=== PATIENT | male | born 1960 | race Caucasian/White ===

== ENCOUNTER → 2023-12-06 11:01 | Outpatient (REF) | payer OTHER, SELFPAY | LOC: HWRAD 11:01 | PROVIDERS: ATTENDING PHYSICIAN Nurse Practitioner Adult Health | DX: R06.09 Other forms of dyspnea (principal); R09.1 Pleurisy | CPT/HCPCS: 71046 ==

== ENCOUNTER 2024-10-08 15:55 | Inpatient (IN) | payer OTHER, SELFPAY ==
[2024-10-08 11:37] VITALS: BP 169/81
[2024-10-08 11:54] VITALS: BP 142/84
[2024-10-08 11:57] VITALS: BMI 35.4
--- NOTE | 2024-10-08 12:25 | ED.GENMED ---
History of Present Illness
General
Chief Complaint: Rectal Bleeding
Time Seen by Provider: 10/08/24 11:46
History of Present Illness
History of Present Illness:
63-year-old male presents the emergency department for evaluation of intractable rectal bleeding and loose stools for the past 2 to 3 months. He has a history of ulcerative colitis, currently managed on Humira which she feels is ineffective.
States he had previously been on Remicade with good results for 10+ years. Has followed up with his GI doctor in [place] and was started on a course of steroids, took 20 mg for 1 month and then increase to 40 mg, taper down over a month. Not
currently on any steroids. Reports minimal to no improvement on that therapy. Denies any significant abdominal pain at this point. No fevers or night sweats. Not on any anticoagulants, was on baby aspirin but discontinued this recently
Review of Systems
Review of Systems
Allergies reviewed?: Yes
All Other Systems: ROS reviewed and negative except as documented in HPI and ROS
Phy Exam
Physical Exam
Physical Exam:
GEN: Well appearing, NAD, WDWN
HEENT: Oral mucosa moist, no scleral icterus
Cardiac: Regular rate
Lung: No respiratory distress, no tachypnea
Abdomen: Soft, nontender
MSK: No gross deformity or injuries
Skin: Good color, no pallor or jaundice, no rashes
Neuro: AO x3, moves all extremities freely
Psych: Calm, cooperative
Course
Orders/Labs/Results
Orders:
Orders
10/08/24 11:39
EKG [Electrocardiogram (*1)] Urgent
Reason for Study: Fatigue / Weakness
EKG- Treatment ONCE
10/08/24 12:23
CT Abd/Pel (IV only)-[facility] only Urgent
Comment:
Reason For Exam: rectal bleeding, diarrhea
10/08/24 12:31
Type+Screen Urgent
CRP [C-Reactive Protein] Urgent
Complete Blood Count/With Diff Urgent
Comprehensive Metabolic Panel Urgent
Ferritin Urgent
Comment: ADD ON
Iron Urgent
Comment: ADD ON
Total Iron Binding Urgent
Comment: ADD ON
10/08/24 12:59
ABO2 Routine
BBK Wristband Number:
Associate notified that ABO2 has been ordered: [id number]
Date: 10/08/24
Time: 13:00
Whiteprinting Machine Operator ID: [id number]
10/08/24 15:08
MethylPREDNISolone PF [Solu-Medrol Pf] 60 mg IV NOW STA
10/08/24 15:32
C DIFF [C difficile Antigen & Toxins] Urgent
OSEI Source: Feces/Stool
Specimen Description:
Norovirus by PCR Routine
OSEI Source: Feces/Stool
Specimen Description:
Ova & Parasites Giardia/Crypto AG [Giardia/Cryptosporidium Ag] Routine
OSEI Source: Feces/Stool
Specimen Description:
Stool Culture Routine
OSEI Source: Feces/Stool
Specimen Description:
10/08/24 15:36
Admit/Transfer Patient As Directed
Co-Sign Provider:
Level of Care: Inpatient admission
Assign to:: Medical/Surgical
Physician / Group: boris
Diagnosis: ulcerative colitis
Reason for Hospitalization: ulcerative colitis
Expected length of stay greater than two midnights?: Yes
ELOS- Estimated Length of Stay in days: 3
I certify the patient meets the requirements for IP care: Yes
PRN Pain Medication Management As Directed
May give lesser potent ordered pain med per pt: Yes
preference::
Protocol:: Medication orders for pain may be administered in a
manner that supports deferring to patient preference
when the pt is:
- Requesting an ordered lesser potent pain medication.
Least to most potent pain medications are defined
as: acetaminophen < NSAID < tramadol < opioids
(morphine, oxycodone, hydromorphone).
- Requesting a lesser dose of the same medication IF
ORDERED.
- Requesting a less intrusive route of administration
if both routes are prescribed by the provider (PO <
IV).
10/08/24 15:37
Code Status As Directed
Resuscitation Status: Full Code
10/08/24 15:59
Acetaminophen [Tylenol] 650 mg PO Q4HPRN PRN
10/08/24 15:59
GASTROINTESTINAL CONSULT Routine
Consulting Provider: Ashley Gambino
Was physician already notified: Yes
Activity As Directed
Activity Level: As Tolerated
Pneumatic Compression Sleeves As Directed
Type: Knee high
Vital Signs As Directed
Frequency: Per unit guidelines
DX Deep Vein Thrombosis Video Routine
DX Deep Vein Thrombosis Video Routine
10/08/24 16:00
Dextrose 5%/0.45%Sodchl 1000ML [D5/0.45%NaCl] 1,000 ml IV 80 mls/hr
10/08/24 18:00
Enoxaparin Sodium [Lovenox] 40 mg SC QPM
10/08/24 22:00
Lisinopril [Zestril] 20 mg PO HS
Rosuvastatin Calcium [Crestor] 10 mg PO HS
10/09/24 Breakfast
NPO
Allow oral meds: Yes
Allow clear liquids: No
Complete Blood Count/No Diff IN AM
10/09/24 08:00
mesalamine See Dose Instructions PO DAILY
10/10/24 06:00
Complete Blood Count/No Diff IN AM
10/11/24 06:00
Complete Blood Count/No Diff IN AM
Abnormal Lab Results
10/08/24
12:31
Hgb 12.1 L g/dL
(13.0-18.0)
Hct 38.3 L %
(39.0-52.0)
MCV 64.4 L fL
(80.0-94.0)
MCH 20.3 L pg
(27.0-31.0)
MCHC 31.6 L g/dL
(33.0-37.0)
RDW 19.4 H %
(11.5-14.5)
Lymphocytes % 17.4 L %
(20.5-51.1)
Iron 46 L ug/dl
(49-181)
% Saturation 15 L %
(20-50)
C-Reactive Protein 38.60 H mg/L
(0.0-10.00)
10/08/24 12:31
10/08/24 12:31
Vital Signs
Initial and Last Documented VS:
Initial Vital Signs
Temp Pulse Resp BP Pulse Ox
98.6 F 53 16 169/81 96
10/08/24 11:37 10/08/24 11:37 10/08/24 11:37 10/08/24 11:37 10/08/24 11:37
Last Documented Vital Signs
Temp Pulse Resp BP Pulse Ox
98.4 F 61 17 155/65 95
10/08/24 16:56 10/08/24 16:56 10/08/24 16:56 10/08/24 16:56 10/08/24 16:56
MDM/Problems Addressed
MDM/Problems Addressed:
Imaging reveals proctocolitis, this is suspicious for persistent ulcerative colitis flare despite steroid treatments at home and continuation of his Humira. Will admit for failure of outpatient management for GI consultation, empiric steroids
started
*Pulse Oximetry
SaO2: 96
Oxygen Mode of Delivery: Room air
Patient hypoxic: no
*Critical Care Note
Total Time (30-74mins, 75-104mins- exclusive of procedures): Not Applicable
ED Attending Note
-
Portions of this chart may have been created with voice recognition software.� Occasional wrong word or��sound alike� substitutions may have occurred due to the inherent limitations of voice recognition software.
Discharge Plan
Departure
Patient Disposition: Admit
Date of Disposition: 10/08/24
Time of Disposition: 15:16
Admit to: Med/Surg
Presentation/result/management discussed w/ accepting MD/DO: Hospitalist
Discharge Problem:
Proctocolitis
Interventions
Interventions:
*Risk Screen - Suicide Last Done: 10/08/24 12:01
*General Assessment Last Done: 10/08/24 11:59
*Neglect/Abuse Screening Last Done: 10/08/24 12:00
*ED- Fall Risk Assessment Last Done: 10/08/24 11:58
*ED COVID-19 Vaccine History Last Done: 10/08/24 11:58
JX-Fdkbjv-Szdkslcfza Assessment Last Done: 10/08/24 12:04
ED- Cardiac Assessment Last Done: 10/08/24 12:01
ED- Pulmonary Assessment Last Done: 10/08/24 12:04
[2024-10-08 12:52] LABS: Hematocrit 38.3 % (39.0-52.0); Hemoglobin 12.1 g/dL (13.0-18.0); Mean Corp Hgb Conc. 31.6 g/dL (33.0-37.0); Mean Corpuscular Volume 64.4 fL (80.0-94.0); Nucleated Red Blood Cells % 0 % (-); Platelet Count 359 10^3/uL (130-400); Red Cell Dist. Width 19.4 % (11.5-14.5)
[2024-10-08 12:57] LABS: ALT (SGPT) 23 U/L (0-50); AST (SGOT) 20 U/L (17-59); Albumin 4.0 g/dl (3.5-5.0); Alkaline Phosphatase 60 U/L (38-126); Blood Urea Nitrogen 11 mg/dl (9-20); Calcium 9.4 mg/dl (8.4-10.2); Carbon Dioxide 24 mmol/L (22-30); Chloride 106 mmol/L (98-107); Estimated Creatinine Clearance 107 ml/min; Glucose 77 mg/dl (70-99); Potassium 4.0 mmol/L (3.5-5.1); Sodium 136 mmol/L (135-145); Total Protein 6.4 g/dl (6.3-8.2); eGFR > 60.00
[2024-10-08 12:59] LABS: C-Reactive Protein 38.60 mg/L (0.0-10.00)
[2024-10-08 14:10] VITALS: BP 137/66
--- NOTE | 2024-10-08 15:17 | HPS.HSE ---
Family Physician
-
Family Physician: MISTY DE LEÓN
Chief Complaint
-
bloody diarrhea
History of Present Illness
63-year-old male with PMH for HTN, HLD presented to us with 3 months of intractable rectal bleeding and loose bowels for past two months. he was evaluated by GI, took steroids with no relief in his symptoms. he is been taking mesalamine oral and
enema with no relief in his symptoms. he is on Humira and try keeping him NPO with no relief in his symptoms. patient stated 20-30 times of bloody loose stools per day. patient stated intense abdominal cramping when moving bowels. denied nausea,
vomiting. denied fever, chills, VALLADARES, dizzy or syncope.denied chest pain, sob. denied dysuria or hematuria.
CT with Moderate infectious/inflammatory proctocolitis of the mid to distal sigmoid colon and the rectum. admitting for further management.
Medical History
Past Medical History
Past Medical History: Reports Other
Additional Past Medical History:
Ulcerative colitis
Pneumonia
Pleural effusion
Past Surgical History: Reports None
Social History
Tobacco: Non-smoker
Alcohol: Occasional
Drug: None
Family History
Family History: Not pertinent
Allergies / Home Medications
Allergies reflects when Allergies were last updated in [facility].
Home Medications with original date entered in [facility]
Allergy/Medication List:
Allergies
Allergy/AdvReac Type Severity Reaction Status Date / Time
clonidine (From Catapres) Allergy Hives Verified 10/08/24 11:39
mercaptopurine Allergy Hives Verified 10/08/24 11:39
Home Medications
adalimumab 40 mg/0.4 mL subcutaneous syringe kit (Humira(CF)) 40 mg SC Q2W 10/08/24
cholecalciferol (vitamin D3) 25 mcg (1,000 unit) tablet (Vitamin D3) 25 mcg PO DAILY 10/08/24
lisinopril 20 mg tablet 20 mg PO HS 10/08/24
mesalamine 1.2 gram tablet,delayed release 4.8 g PO DAILY 10/08/24
rosuvastatin 10 mg tablet (Crestor) 10 mg PO HS 10/08/24
Review of Systems
-
Constitutional: Reports No Symptoms
EENT: Reports No Symptoms
Respiratory: Reports No Symptoms
Cardiac: Reports No Symptoms
Abdomen/GI: Reports Diarrhea and Bloody Stools
: Reports No Symptoms
Musculoskeletal: Reports No Symptoms
Skin: Reports No Symptoms
Neurological: Reports No Symptoms
Endocrine: Reports No Symptoms
Hematologic/Lymphatic: Reports No Symptoms
Psych: Reports No Symptoms
Physical Exam
Vital Signs
Vital Signs
Temp Pulse Resp BP Pulse Ox
97.9 F 55 17 137/66 97
10/08/24 14:10 10/08/24 14:10 10/08/24 14:10 10/08/24 14:10 10/08/24 14:10
Physical Exam
General: Well Developed, Well Nourished and No Apparent Distress
HEENT: NormoCephalic, Moist mucous membranes and Atraumatic
Respiratory: Clear
Cardiac: S1/S2 and Regular Rhythm; No Murmur or Rub
GI: Soft, Non Tender, Non Distended and Normal Bowel Sounds; No Organomegaly
Rectal: Deferred by Provider
Musculoskeletal: No Clubbing, No Cyanosis and No Edema
Skin: No Rash
Neuro: AO x 3 and Nonfocal/grossly intact
Psych: Calm
Laboratory Results
-
10/08/24 12:31
10/08/24 12:31
Laboratory Results
Total Bilirubin 1.1 mg/dl (0.2-1.3) 10/08/24 12:31
AST 20 U/L (17-59) 10/08/24 12:31
ALT 23 U/L (0-50) 10/08/24 12:31
Alkaline Phosphatase 60 U/L (38-126) 10/08/24 12:31
Data Reviewed
-
CT Scan: Report Reviewed by me
Lab Data: Labs Reviewed by me
Impression/Plan
-
# Ulcerative colitis flare
- Failed outpatient steroids
-keep patient NPO.
- GI consulted
- CT with impression of Moderate infectious/inflammatory proctocolitis of the mid to distal sigmoid colon and the rectum.
-mesalamine continued
-obtain stool culture
-steroids as per GI
#essential HTN/HLD
-lisinopril continued with hold parameters
-Crestor continued
#DVT prophylaxis
-lovenox
#CODE status
-full code
[2024-10-08] MEDS: SOLU-MEDROL PF 60 MG IV (15:18)
--- NOTE | 2024-10-08 15:20 | CON.GI ---
Addendum entered and electronically signed by Ashley Gambino DO 10/08/24 18:33:
Patient seen and examined independently of ELINOR. I agree with her note with my additions below
Jean Claude is a 63-year-old obese male with history of hyperlipidemia, sleep apnea, vitamin D deficiency and anemia who has had left-sided ulcerative colitis since 1994. Initially started on mesalamine and then added Remicade in 2008 with good control
until insurance changes caused him to change to Humira biweekly. He states during the Remicade he had 1 mild flare that was easily controlled with a short course of steroids. He has been on Humira since 2022 and has been flaring since March. He
is only seen his outpatient GI once in March. He has had no stool studies done. Initially placed on 20 mg of prednisone then he himself increased it to 40 mg a month ago because he is having significant fecal urgency and 20+ trips to the
bathroom including occasional nocturnal and even some accidents. Significant tenesmus, mainly mucus and for the past 2 months some blood in the stools.
He has lost about 15 pounds. He has not on any calcium but is taking vitamin D despite being on steroids. Not on any NSAIDs. No anticoagulation. No significant upper GI symptoms. Eating causes significant bowel movements and only gets some mild
cramping with bowel movements otherwise no significant abdominal pain. Denies any history of C. difficile
#mucoid fecal urgency and frequency in the setting of ulcerative colitis while on steroids for months while on Humira [id number]
-- Followed by Dr. Saab
-- Stool studies including C. difficile, calprotectin
-- Flexible sigmoidoscopy tomorrow. Patient is okay with no sedation -will biopsy for CMV, get an endoscopic grade of his ulcerative colitis
-- Humira failure although unsure of his levels. No drug levels were done
-- Patient responded well to Remicade in the past and was changed only for insurance purposes
-- Could check Remicade antibodies
-- IV steroids, IV fluids, DVT prophylaxis
-- Patient has significant family history of cardiac disease and he himself has some risk factors so we will try to avoid Rinvoq for now
-- Hold mesalamine
-- Trend CRP, add on iron studies, check hepatitis panel in case he needs inpatient Remicade
Original Note:
Consultation
-
Date/Time Consultation Requested: 10/08/24 151
Date/Time Consultation Performed: 10/08/24 1520
Requesting Provider: Abdi Rhodes PA-C
Performing Provider: ELINOR Fernandez, Ashley Gambino DO
Reason for Consultation: rectal bleeding
Medical History
Chief Complaint / HPI
Chief Complaint: rectal bleeding
History of Present Illness:
Pt is a 63yo with hx HTN, hypercholesterolemia, kidney stones, prior PNA, pleural effusion, REMIGIO with c pap use, obesity, pleurisy, vitamin D deficiency, colon polyps, anemia, and longstanding ulcerative colitis. On admission CT noted with
Moderate infectious/inflammatory proctocolitis of the mid to distal sigmoid colon and the rectum. Labs noted with hbg 12.1 with MCV 64.4, chemistry stable with CRP 38.6. In review with patient he was diagnosed with UC around 1994. He initially was
given then diagnosis of IBS with status but had bleeding. He first started on Mesalamine but around 2008 added Remicade with good control of symptoms til 2022 when his insurance changed to [email or web address]. Since that time he had been on Humira
40mg every 2 weeks along with Mesalamine 4.8 gram daily with progressively worsening symptoms and increased bleeding. He recent started Prednisone initially 20mg daily then 40mg daily with minimal change. He also took Mesalamine enemas. He has
been followed by Dr. Saab for last 9 years and has tried to change therapy but per patient MD has been reluctant to change. He also tried to switch MD's but insurance was limited. He now presents with worsening stool urgency, bleeding and
also noted diffuse rash, and visual changes. He does admit to recent family pet with also bloody diarrhea with ? hepatitis. Last colonoscopy 2023 recalls as normal and normal EGD.
In review with patient he admits to blood stools about 20 + per day and less with eating less with urgency. + Abdominal pain with BM. + 15 lbs wt loss. He also admits to sore through but otherwise denies dyphagia, GERD, nausea, vomiting,
constiaption or black stools. No NSAID other than ASA that he stopped with incresed bleeding and no anticoagulation use.
Past Medical History
Past Medical History: HTN, Hypercholesterolemia and Other (ulcerative colitis, Prior PNA, pleural effusion, REMIGIO, obesity, pleurisy, renal stones, colon polyps, anemia)
Past Surgical History: Tonsilectomy (age 7) and Other (nasal surgery 2019 )
Social History
Tobacco: Non-Smoker
Alcohol: Occasional (rare)
Drug: None
Personal:
Living: With Family
Employment: Employed
Family History
Family History: Other (sister with stomach CA, brother and mother with IBD)
Allergies / Home Medications
Allergy/AdvReac Type Severity Reaction Status Date / Time
clonidine (From Catapres) Allergy Hives Verified 10/08/24 11:39
mercaptopurine Allergy Hives Verified 10/08/24 11:39
�Medication �Instructions �Recorded
adalimumab 40 mg/0.4 mL 40 mg SC Q2W 10/08/24
subcutaneous syringe kit
(Humira(CF))
cholecalciferol (vitamin D3) 25 25 mcg PO DAILY 10/08/24
mcg (1,000 unit) tablet (Vitamin
D3)
lisinopril 20 mg tablet 20 mg PO HS 10/08/24
mesalamine 1.2 gram tablet,delayed 4.8 g PO DAILY 10/08/24
release
rosuvastatin 10 mg tablet (Crestor) 10 mg PO HS 10/08/24
Review of Systems
-
History Source: Patient
Constitutional: Reports Weight Gain and Other (visual changes)
EENT: Reports No Symptoms
Respiratory: Reports No Symptoms
Cardiac: Reports No Symptoms
Abdomen/GI: Reports Abdominal Pain, Diarrhea, Bloody Stools and Other (stool urgency )
: Reports No Symptoms
Musculoskeletal: Reports No Symptoms
Skin: Reports Rash
Neurological: Reports No Symptoms
Endocrine: Reports No Symptoms
Hematologic/Lymphatic: Reports Bleeding
Vital Signs
Temp Pulse Resp BP Pulse Ox
97.9 F 55 17 137/66 97
10/08/24 14:10 10/08/24 14:10 10/08/24 14:10 10/08/24 14:10 10/08/24 14:10
Physical Exam
Exam
General: Well Developed, Well Nourished and No Apparent Distress
HEENT: Normocephalic and Anicteric
Respiratory: Clear
Cardiac: Regular Rhythm
GI: Soft, Non Tender and Non Distended
Musculoskeletal: No Clubbing and No Cyanosis
Skin: Warm and Dry
Neuro: Awake, Alert and AO x 3
Psych: Calm
Results
WBC 7.4 10^3/uL (4.8-10.8) 10/08/24 12:31
Hgb 12.1 g/dL (13.0-18.0) L 10/08/24 12:31
Hct 38.3 % (39.0-52.0) L 10/08/24 12:31
MCV 64.4 fL (80.0-94.0) L 10/08/24 12:31
Plt Count 359 10^3/uL (130-400) 10/08/24 12:31
Absolute Neuts (auto) 5.2 10^3/uL (1.4-6.5) 10/08/24 12:31
Sodium 136 mmol/L (135-145) 10/08/24 12:31
Potassium 4.0 mmol/L (3.5-5.1) 10/08/24 12:31
Chloride 106 mmol/L (98-107) 10/08/24 12:31
Carbon Dioxide 24 mmol/L (22-30) 10/08/24 12:31
BUN 11 mg/dl (9-20) 10/08/24 12:
Creatinine 0.9 mg/dL (0.7-1.3) 10/08/24 12:
Calcium 9.4 mg/dl (8.4-10.2) 10/08/24 12:
Total Bilirubin 1.1 mg/dl (0.2-1.3) 10/08/24 12:
AST 20 U/L (17-59) 10/08/24 12:
ALT 23 U/L (0-50) 10/08/24 12:
Alkaline Phosphatase 60 U/L (38-126) 10/08/24 12:
Diagnostic Image Results:
10/08/24 CT Abd/Pel (IV only)-[facility] only
CT noted with Moderate infectious/inflammatory proctocolitis of the mid to distal sigmoid colon and the rectum.
Prior GI Procedures:
EGD: 2023 [facility] pt recall as normal
Colonoscopy: last 2023 pt recall as normal
Assessment / Plan
-
Pt is a 63yo with hx HTN, hypercholesterolemia, kidney stones, prior PNA, pleural effusion, REMIGIO with c pap use, obesity, pleurisy, vitamin D deficiency, colon polyps, anemia, and longstanding ulcerative colitis. On admission CT noted with
Moderate infectious/inflammatory proctocolitis of the mid to distal sigmoid colon and the rectum. Labs noted with hbg 12.1 with MCV 64.4, chemistry stable with CRP 38.6. In review with patient he was diagnosed with UC around 1994. He initially was
given then diagnosis of IBS with status but had bleeding. He first started on Mesalamine but around 2008 added Remicade with good control of symptoms til 2022 when his insurance changed to [email or web address]. Since that time he had been on Humira
40mg every 2 weeks along with Mesalamine 4.8 gram daily with progressively worsening symptoms and increased bleeding. He recent started Prednisone initially 20mg daily then 40mg daily with minimal change. He also took Mesalamine enemas. He has
been followed by Dr. Saab for last 9 years and has tried to change therapy but per patient MD has been reluctant to change. He also tried to switch MD's but insurance was limited. He now presents with worsening stool urgency, bleeding and
also noted diffuse rash, and visual changes. He does admit to recent family pet with also bloody diarrhea with ? hepatitis. Last colonoscopy 2023 recalls as normal and normal EGD.
-rectal bleeding with increased stool frequency
-longstanding ulcerative colitis
- CT noted with Moderate infectious/inflammatory proctocolitis of the mid to distal sigmoid colon and the rectum
-mild anemia
-elevated CRP
-recent rash/visual changes
other med problems:
HTN, hypercholesterolemia, kidney stones, prior PNA, pleural effusion, REMIGIO with c pap use, obesity, pleurisy, vitamin D deficiency, colon polyps
PLAN:
etiology of increased bleeding and stool frequency with proctocolitis on Ct related UC flare with change off Remicade, vs infection vs other
pt had been unresponsive to continued Humira, mesalamine, prednisone 20mg then 40mg daily, and mesalamine enemas
s/p Solumedrol 60mg given in ER will review continued dosing with Dr. gambino
will need to consider alternative OP therapy
check stool studies
add fecal hali
ok for clear diet
may need flex
trend hbg transfuse as needed
OP follow up with Dr. Saab but pt states would like to switch though current limited insurance and will be changes to medicare shortly
-
-
Thank you for consultation and allowing me to participate in the patient's care. Please call the sales contract administrator GI physician during the after hours with any questions or concerns.
--- NOTE | 2024-10-08 15:31 | W.PN.UPDATE ---
Update Note
Progress Note Update
This is an addendum to H&P written by OYSTER GRADER Leyla Garcia
I saw and examined the patient.
The OYSTER GRADER's note was reviewed and I agree with the note.
Comment:
Mr. Jean Claude Jefferson is a 63 yo man with hx UC, HTN, NIDDM presents with two months of bloody diarrhea not responsive to outpatient treatment.
Triage VS: T 98.6, P 53, RR 16, BP 169/81, SpO2 96%
On exam patient is awake, alert, no distress. Abdomen soft, nontender, no LE swelling.
LABS: WBC 7.4, Hg 12.1, PLT 359, Na 136, K+ 4, Cl 106, Cr 0.9, Glucose 77
CRP 38.6
MAR IV Methylprednisolone
Hematochezia in setting of ulcerative colitis flair, not responsive to outpatient treatment
-s/p IV Methylprednisolone in the ER
-send stool studies
-IVF
-follow up GI recommendations
Essential HTN
-COPY TECHNICIAN Lisinopril
HLD - COPY TECHNICIAN statin
DVT PPx - Lovenox subQ (high risk in UC flair)
FULL CODE
[2024-10-08] MEDS: D5/0.45%NACL 1000 IV (16:23)
[2024-10-08 16:56] VITALS: BP 155/65
[2024-10-08 17:05] LABS: Iron 46 ug/dl (49-181)
[2024-10-08 17:14] LABS: Total Iron Binding Capacity 302 ug/dl (261-462)
[2024-10-08] MEDS: LOVENOX SC (17:21)
[2024-10-08 17:42] LABS: Ferritin 93.3 ng/ml (17.9-464.0)
[2024-10-08 21:20] VITALS: BP 141/77
[2024-10-08] MEDS: CRESTOR PO (22:35)
[2024-10-08] MEDS: ZESTRIL PO (22:36)
[2024-10-09] VITALS (7 sets, daily range): BP systolic 130–143; BP diastolic 60–80; BMI 34.7
[2024-10-09] MEDS: SOLU-MEDROL PF 20 MG IV ×4 (00:12→23:07)
[2024-10-09] MEDS: D5/0.45%NACL 1000 IV (04:42)
[2024-10-09 06:21] LABS: Hematocrit 39.2 % (39.0-52.0); Hemoglobin 12.5 g/dL (13.0-18.0); Mean Corp Hgb Conc. 31.9 g/dL (33.0-37.0); Mean Corpuscular Volume 64.1 fL (80.0-94.0); Platelet Count 382 10^3/uL (130-400); Red Cell Dist. Width 19.3 % (11.5-14.5)
[2024-10-09 06:53] LABS: C-Reactive Protein 38.70 mg/L (0.0-10.00)
--- NOTE | 2024-10-09 07:14 | W.PN.HOSP.TC ---
Today's Communication/Plan
-
sigmoidoscopy today
Assessment / Plan
Assessment / Plan
Assessment
This is a 63 y/o male with pmhx of essential hypertension, hyperlipidemia, and ulcerative colitis who presented to the ED on 10/08/2024 with intractable rectal bleeding and loose stools for 2 months due to ulcerative colitis flare.
Plan
Ulcerative Colitis Flare
-Patient was diagnosed with ulcerative colitis in 1994. Previously he had responded well to Remicade, but his medication regimen was changed to Humira for insurance reasons
-Most recent colonoscopy in 2023 which patient recalled as normal
-CT scan in the ED revealed moderate infectious/inflammatory proctocolitis of the mid to distal sigmoid colon and rectum.
-Fecal studies negative
-Gastroenterology is following, will appreciate their insight into his case
-HOLD Mesalamine
-Continue IV steroids, IV fluids
-Patient is scheduled for sigmoidoscopy today
-Will trend CRP
Chronic Microcytic Anemia
-2/2 to Ulcerative Colitis Flare
-Hemoglobin 12.5 today, stable
-Will trend CBC
Essential Hypertension
-Continue home meds (Lisinopril) with hold parameters
Hyperlipdiemia
-Continue home meds (Crestor)
Anticipated Discharge: 24 - 48 hours
Subjective/Interval History
-
Date of Service: October 09, 2024
Patient was doing well today when I arrived. He reports that the IV Steroids have helped him greatly in reduction of both quantity of blood in his stool and the frequency of stools. He reports at his peak he would have a painful bowel movement 30
times in a day with blood filling the entire toilet, but since midnight he has only gone twice and the amount of blood has been reduced to drops.
Objective Data
-
Labs:
Laboratory Results
10/09/24
05:58
WBC 6.1
Hgb 12.5 L
Hct 39.2
Plt Count 382
Vital Signs:
Vital Signs
Temp Pulse Resp BP Pulse Ox
98.4 F 64 18 138/80 96
10/08/24 16:56 10/09/24 06:11 10/08/24 21:20 10/09/24 06:11 10/09/24 06:11
I&O
10/08/24 10/09/24 10/10/24
06:59 06:59 06:59
Intake Total 200 / 200
Output Total 300 / 300
Balance -100 / -100
Review of Systems
-
History Source: Patient
Constitutional: Reports Weight Loss; Denies Fever or Chills
Respiratory: Denies Cough or Trouble Breathing
Cardiac: Denies Chest Pain
Abdomen/GI: Reports Abdominal Pain, Diarrhea and Bloody Stools; Denies Nausea, Vomiting or Constipated
Musculoskeletal: Denies Joint Pain, Joint Swelling, Muscle Pain or Muscle Stiffness
Skin: Denies Itching or Rash
Neuro: Denies Dizzy, Headache, Weakness, Tremors or Lightheadedness
Physical Exam
-
General: Well Developed, Well Nourished, No Apparent Distress and Comfortable
HEENT: Normocephalic and Atraumatic
Respiratory: Clear to Auscultation
Cardiac: Regular Rhythm and S1/S2
GI: Soft, Nontender and Normal Bowel Sounds
Skin: Warm and Dry
Neuro: Awake, Alert and Oriented
Psych: Calm
--- NOTE | 2024-10-09 11:33 | W.PN.UPDATE ---
Addendum entered and electronically signed by Ashley Gambino DO 10/09/24 11:51:
Follow up in our office on 10/21/24 at 12:30pm with Dr. Gambino
Original Note:
Update Note
Progress Note Update
Flexible sigmoidoscopy done without sedation
- Bernal 3 in the rectum and sigmoid with Bernal 2 up to the splenic flexure which was the extent of the procedure
Biopsies taken for CMV and for history of ulcerative colitis
Continue IV steroids today, low residue diet
Likely transition to oral steroids tomorrow 50 mg once daily
Needs to have a good 24 hours on oral steroids before going home to prevent readmission
Patient will need to go home on calcium, vitamin D and at least H2 kwabena to protect his stomach from the steroids
Patient has thalassemia which explains his very low MCV
Will see if we can get infliximab antibodies sent from [facility] in order to start Remicade outpatient
Will have him follow-up in my office on 10/21/2024
--- NOTE | 2024-10-09 11:44 | CM ---
Patient seen at bedside in ED. Patient stated that he lives with his in a 2 story home. patient states that he has a CPAP at home but no other DME. Patient stated that he sees Dr. Arciniega as an [employer] and is to change when he transitions
onto . Patient pharmacy is [facility] in [place]. Patient at bedside. Plan for patient to have a procedure at 9:40am. CM will continue to follow for discharge planning needs.
Plan; home with no needs vs home with VN; watch for possible medication needs.
[2024-10-09 14:39] LABS: Hepatitis B Surface Antigen Negative (Negative)
[2024-10-09 14:57] LABS: Hepatitis C Antibody Negative (Negative)
[2024-10-09] MEDS: PEPCID 40 MG PO (17:24)
[2024-10-09] MEDS: LOVENOX 40 MG SC (17:25)
[2024-10-09] MEDS: D5/0.45%NACL IV (18:03)
[2024-10-09] MEDS: ZESTRIL 20 MG PO (21:04)
[2024-10-09] MEDS: CRESTOR 10 MG PO (21:07)
--- NOTE | 2024-10-10 05:49 | W.PN.GI.CBS2 ---
Today's Communication / Plan
-
Stop IV steroids, start oral Prednisone 50 mg once daily while inpatient. Favor monitoring for 24 hours while in-house on oral steroids and if ongoing improvement can likely be discharged over weekend with close outpatient follow-up. See rest of
care as outlined below.
Assessment / Plan
-
Pt is a 63yo with hx HTN, hypercholesterolemia, kidney stones, prior PNA, pleural effusion, REMIGIO with c pap use, obesity, pleurisy, vitamin D deficiency, colon polyps, anemia, and longstanding ulcerative colitis. On admission CT noted with
Moderate infectious/inflammatory proctocolitis of the mid to distal sigmoid colon and the rectum. Labs noted with hbg 12.1 with MCV 64.4, chemistry stable with CRP 38.6. In review with patient he was diagnosed with UC around 1994. He initially was
given then diagnosis of IBS with status but had bleeding. He first started on Mesalamine but around 2008 added Remicade with good control of symptoms til 2022 when his insurance changed to [employer]. Since that time he had been on Humira
40mg every 2 weeks along with Mesalamine 4.8 gram daily with progressively worsening symptoms and increased bleeding. He recent started Prednisone initially 20mg daily then 40mg daily with minimal change. He also took Mesalamine enemas. He has
been followed by Dr. Saab for last 9 years and has tried to change therapy but per patient MD has been reluctant to change. He also tried to switch MD's but insurance was limited. He now presents with worsening stool urgency, bleeding and
also noted diffuse rash, and visual changes. He does admit to recent family pet with also bloody diarrhea with ? hepatitis. Last colonoscopy 2023 recalls as normal and normal EGD.
-rectal bleeding with increased stool frequency
-longstanding ulcerative colitis
- CT noted with Moderate infectious/inflammatory proctocolitis of the mid to distal sigmoid colon and the rectum
-mild anemia
-elevated CRP
-recent rash/visual changes
other med problems:
HTN, hypercholesterolemia, kidney stones, prior PNA, pleural effusion, REMIGIO with c pap use, obesity, pleurisy, vitamin D deficiency, colon polyps
S/p Flex-Sig on 10/09/24: Bernal 3 in the rectum and sigmoid with Bernal 2 up to the splenic flexure which was the extent of the procedure; biopsies taken for CMV and for hx of UC
Recommendations:
- Continue low-fiber, low-residue diet
- F/u AM labs along with trending serial CRPs while inpatient
- Transition to p.o prednisone 50 mg once daily this afternoon
- Favor monitoring for 24 hrs to ensure ongoing response/improvement with p.o steroids
- Path result pending from prior flex-sig
- Will need to go home on calcium, vitamin D and at least H2 kwabena to protect his stomach from the steroids
- Patient ultimately will need very close follow-up with Dr. Gambino, f/u scheduled on 10/21/2024
- Ensure chemical VTE ppx while inpatient given IBD
- Strict avoidance of all NSAIDs
- Rest of care as per primary team
If ongoing improvement with p.o steroids over 24 hrs, can likely be discharged over weekend. GI will continue to follow. Discussed with primary internal medicine team.
Subjective
Subjective
Date of Service: October 10, 2024
- S/p Flex-Sig on 10/09/24: Bernal 3 in the rectum and sigmoid with Bernal 2 up to the splenic flexure which was the extent of the procedure; biopsies taken for CMV and for hx of UC
- Remains on IV Methylpred 20 mg TiD
- CRP 38.60 -> 38.70
- Otherwise, no acute events overnight. AM labs pending
Feeling well, resting comfortably this morning. Reports having two looser bloody stools overnight but much improved since IV steroids. No other nausea or vomiting. Tolerating current diet without difficulty. No fevers, chills or other consitutional
symptoms.
Objective
Data Reviewed
Laboratory Data:
Laboratory Results
Total Bilirubin 1.1 mg/dl (0.2-1.3) 10/08/24 12:31
AST 20 U/L (17-59) 10/08/24 12:31
ALT 23 U/L (0-50) 10/08/24 12:31
Alkaline Phosphatase 60 U/L (38-126) 10/08/24 12:31
Vital Signs and I&O:
Vital Signs
Temp Pulse Resp BP Pulse Ox
98.5 F 56 20 131/71 96
10/09/24 23:07 10/09/24 23:07 10/09/24 23:07 10/09/24 23:07 10/09/24 23:07
I&O
10/08/24 10/09/24 10/10/24
06:59 06:59 06:59
Intake Total 200 / 200
Output Total 300 / 300
Balance -100 / -100
Physical Exam
Physical Exam
HEENT: Anicteric and Moist mucous membranes
Pulmonary: Other (Normal WOB on room air)
GI: Soft, Non Distended and Non Tender
Extremities: No Edema
Neuro: Non Focal
[2024-10-10 07:30] VITALS: BP 148/70
[2024-10-10 08:42] LABS: Hematocrit 39.3 % (39.0-52.0); Hemoglobin 12.4 g/dL (13.0-18.0); Mean Corp Hgb Conc. 31.6 g/dL (33.0-37.0); Mean Corpuscular Volume 63.8 fL (80.0-94.0); Platelet Count 421 10^3/uL (130-400); Red Cell Dist. Width 19.8 % (11.5-14.5)
[2024-10-10 09:22] LABS: Blood Urea Nitrogen 20 mg/dl (9-20); Calcium 9.7 mg/dl (8.4-10.2); Carbon Dioxide 21 mmol/L (22-30); Chloride 106 mmol/L (98-107); Estimated Creatinine Clearance 106 ml/min; Glucose 131 mg/dl (70-99); Potassium 4.5 mmol/L (3.5-5.1); Sodium 137 mmol/L (135-145); eGFR > 60.00
[2024-10-10] MEDS: DELTASONE 50 MG PO (09:29)
[2024-10-10 09:32] LABS: C-Reactive Protein 18.50 mg/L (0.0-10.00)
[2024-10-10] MEDS: PEPCID 40 MG PO (09:32)
[2024-10-10] MEDS: SOLU-MEDROL PF IV (09:45)
--- NOTE | 2024-10-10 10:28 | CM ---
Chart reviewed and patient to return to home when stable, per physician notes plan to observe and discharge over weekend.
Plan; Home when stable, no needs.
--- NOTE | 2024-10-10 10:42 | W.PN.HOSP.TC ---
Today's Communication/Plan
-
Transition IV Steroids to Oral Steroids
Possible D/c tomorrow
Assessment / Plan
Assessment / Plan
Assessment
This is a 63 y/o male with pmhx of essential hypertension, hyperlipidemia, and ulcerative colitis who presented to the ED on 10/08/2024 with intractable rectal bleeding and loose stools for 2 months due to ulcerative colitis flare.
Plan
Ulcerative Colitis Flare
-Patient was diagnosed with ulcerative colitis in 1994. Previously he had responded well to Remicade, but his medication regimen was changed to Humira for insurance reasons
-Most recent colonoscopy in 2023 which patient recalled as normal
-CT scan in the ED revealed moderate infectious/inflammatory proctocolitis of the mid to distal sigmoid colon and rectum.
-Fecal studies negative
-Gastroenterology is following, will appreciate their insight into his case
-Pending biopsy results from sigmoidoscopy 10/09/2024
-Continue oral steroids with plan to watch patient for 24 hours minimum before discharge
-Upon discharge, patient needs prescriptions for calcium and Vitamin D supplements, as well as a PPI
-Patient has GI follow up already scheduled.
-Will trend CRP
Vitamin D Deficiency
-By patient report, chronic
-Encouraged outpatient follow up
Left Eye Non-Purulent Stye
-No current sign of other infectious process.
-Encouraged use of warm compress and oral pain medications as needed
-Will monitor
Chronic Microcytic Anemia
-2/2 to Ulcerative Colitis Flare
-Hemoglobin has remained stable
-Will trend CBC
Essential Hypertension
-Continue home meds (Lisinopril) with hold parameters
Hyperlipidemia
-Continue home meds (Crestor)
Anticipated Discharge: Within 24 hours
Subjective/Interval History
-
Date of Service: October 10, 2024
Patient was doing well when I arrived. He had questions about his white blood cell count, so I reviewed the different causes of leukocytosis including chronic steroid use with him. He does report some right eye discomfort and redness which began
after he was cleaning his mother's house a few days ago and a piece of dust landed in his eye. He used eye drops with relief at home, but has not used them since arrival in the hospital. He has no other concerns or complaints, and had his first dose
of oral steroids around 9AM this morning.
We spent time reviewing his care including the medication he had been on previously. He feels Grabiel does not work for him, as he only began to have issues after he switched medications. He had been stable for 15 years without any issues prior to
this switch. He does report longstanding Vitamin D deficiency for which he regularly takes Vitamin D supplements at home.
Objective Data
-
Labs:
Laboratory Results
10/10/24
07:55
WBC 10.5
Hgb 12.4 L
Hct 39.3
Plt Count 421 H
Sodium 137
Potassium 4.5
Chloride 106
Carbon Dioxide 21 L
BUN 20
Creatinine 0.9
Glucose 131 H
Calcium 9.7
Vital Signs:
Vital Signs
Temp Pulse Resp BP Pulse Ox
97.9 F 58 21 148/70 96
10/10/24 07:30 10/10/24 07:30 10/10/24 07:30 10/10/24 07:30 10/10/24 07:30
I&O
10/09/24 10/10/24 10/11/24
06:59 06:59 06:59
Intake Total 200 / 200
Output Total 300 / 300
Balance -100 / -100
Review of Systems
-
History Source: Patient and Family
EENT: Reports Eye Pain, Dry Eyes and Other; Denies Blurry Vision or Decreased Vision
Respiratory: Denies Cough or Trouble Breathing
Cardiac: Denies Chest Pain
Abdomen/GI: Denies Abdominal Pain, Nausea, Vomiting or Constipated
Physical Exam
-
General: Well Developed, Well Nourished, No Apparent Distress, Comfortable and Obese
HEENT: Normocephalic, Atraumatic, Nose Appears Normal, Ears Appear Normal and Other (There is a stye on the upper eyelid near the medial side of the left eye. Both eyes are without erythema and edema, and the areas surrounding the eyes are nontender)
Respiratory: Clear to Auscultation
Cardiac: Regular Rhythm and S1/S2
GI: Normal Bowel Sounds
Skin: Warm and Dry
Neuro: Awake, Alert and Oriented
Psych: Calm and Intact Judgement/Insight
[2024-10-10 15:00] VITALS: BP 118/66
[2024-10-10] MEDS: LOVENOX 40 MG SC (19:13)
[2024-10-10] MEDS: ZESTRIL 20 MG PO (21:06)
[2024-10-10] MEDS: CRESTOR 10 MG PO (21:06)
[2024-10-10 23:11] VITALS: BP 120/70
--- NOTE | 2024-10-11 06:35 | W.PN.GI.CBS2 ---
Today's Communication / Plan
-
Ongoing improvement with oral prednisone. Okay to d/c from GI standpoint on Prednisone 50 mg and can be tapered once he follows-up as outpatient. GI will sign-off, please recontact with any questions/concerns.
Assessment / Plan
-
Pt is a 63yo with hx HTN, hypercholesterolemia, kidney stones, prior PNA, pleural effusion, REMIGIO with c pap use, obesity, pleurisy, vitamin D deficiency, colon polyps, anemia, and longstanding ulcerative colitis. On admission CT noted with
Moderate infectious/inflammatory proctocolitis of the mid to distal sigmoid colon and the rectum. Labs noted with hbg 12.1 with MCV 64.4, chemistry stable with CRP 38.6. In review with patient he was diagnosed with UC around 1994. He initially was
given then diagnosis of IBS with status but had bleeding. He first started on Mesalamine but around 2008 added Remicade with good control of symptoms til 2022 when his insurance changed to [employer]. Since that time he had been on Humira
40mg every 2 weeks along with Mesalamine 4.8 gram daily with progressively worsening symptoms and increased bleeding. He recent started Prednisone initially 20mg daily then 40mg daily with minimal change. He also took Mesalamine enemas. He has
been followed by Dr. Saab for last 9 years and has tried to change therapy but per patient MD has been reluctant to change. He also tried to switch MD's but insurance was limited. He now presents with worsening stool urgency, bleeding and
also noted diffuse rash, and visual changes. He does admit to recent family pet with also bloody diarrhea with ? hepatitis. Last colonoscopy 2023 recalls as normal and normal EGD.
-rectal bleeding with increased stool frequency
-longstanding ulcerative colitis
- CT noted with Moderate infectious/inflammatory proctocolitis of the mid to distal sigmoid colon and the rectum
-mild anemia
-elevated CRP
-recent rash/visual changes
other med problems:
HTN, hypercholesterolemia, kidney stones, prior PNA, pleural effusion, REMIGIO with c pap use, obesity, pleurisy, vitamin D deficiency, colon polyps
S/p Flex-Sig on 10/09/24: Bernal 3 in the rectum and sigmoid with Bernal 2 up to the splenic flexure which was the extent of the procedure; biopsies taken for CMV and for hx of UC
Recommendations:
- Continue low-fiber, low-residue diet
- CRP down-trending 38 -> 18.50 -> 10.50
- Continue oral Prednisone 50 mg once daily and would continue this until he follows up with Dr. Gambino (d/w Dr. Gambino)
- Path results (-) CMV, revealing chronic active colitis with crypt abscesses consistent with active involvement by UC, (-) dysplasia
- Will need to go home on calcium, vitamin D and at least H2 kwabena to protect his stomach from the steroids
- Patient ultimately will need very close follow-up with Dr. Gambino, f/u scheduled on 10/21/2024
- Ensure chemical VTE ppx while inpatient given IBD
- Strict avoidance of all NSAIDs
- Rest of care as per primary team
Okay to be discharged today given ongoing improvement with p.o steroids with close outpatient follow-up. Discussed with primary internal medicine team. GI will sign-off, please recontact with any questions or concerns.
Subjective
Subjective
Date of Service: October 11, 2024
- Stopped IV steroids on 10/10, transitioned to oral Prednisone 50 mg q daily on 10/10
- CRP down-trending 38 -> 18.50 -> 10.50
- Otherwise, no acute events overnight
Having less diarrhea, more formed stools. No abdominal pain or discomfort. Feeling much improved since the steroids and without any worsening symptoms overnight or this AM while on oral steroids.
Objective
Data Reviewed
Laboratory Data:
Laboratory Results
Total Bilirubin 1.1 mg/dl (0.2-1.3) 10/08/24 12:31
AST 20 U/L (17-59) 10/08/24 12:31
ALT 23 U/L (0-50) 10/08/24 12:31
Alkaline Phosphatase 60 U/L (38-126) 10/08/24 12:31
Vital Signs and I&O:
Vital Signs
Temp Pulse Resp BP Pulse Ox
97.5 F 50 18 120/70 94
10/10/24 23:11 10/10/24 23:11 10/10/24 23:11 10/10/24 23:11 10/10/24 23:11
I&O
10/09/24 10/10/24 10/11/24
06:59 06:59 06:59
Intake Total 200 / 200
Output Total 300 / 300
Balance -100 / -100
Physical Exam
Physical Exam
HEENT: Anicteric and Moist mucous membranes
Pulmonary: Other (Normal WOB on room air)
GI: Soft, Non Distended and Non Tender
Extremities: No Edema
Neuro: Non Focal
[2024-10-11 07:00] VITALS: BP 128/80
[2024-10-11 08:19] LABS: Hematocrit 38.1 % (39.0-52.0); Hemoglobin 12.0 g/dL (13.0-18.0); Mean Corp Hgb Conc. 31.5 g/dL (33.0-37.0); Mean Corpuscular Volume 64.4 fL (80.0-94.0); Platelet Count 414 10^3/uL (130-400); Red Cell Dist. Width 19.5 % (11.5-14.5)
[2024-10-11 08:26] LABS: C-Reactive Protein 10.50 mg/L (0.0-10.00)
[2024-10-11 08:27] LABS: Blood Urea Nitrogen 24 mg/dl (9-20); Calcium 9.8 mg/dl (8.4-10.2); Carbon Dioxide 27 mmol/L (22-30); Chloride 104 mmol/L (98-107); Estimated Creatinine Clearance 87 ml/min; Glucose 96 mg/dl (70-99); Potassium 4.3 mmol/L (3.5-5.1); Sodium 138 mmol/L (135-145); eGFR > 60.00
[2024-10-11] MEDS: DELTASONE 50 MG PO (09:25)
[2024-10-11] MEDS: PEPCID 40 MG PO (09:25)
--- NOTE | 2024-10-11 09:44 | W.PN.HOSP.TC ---
Today's Communication/Plan
-
Discharge with OP GI follow-up
50 mg prednisone until seen in office by GI
Calcium/vitamin D for bone prophylaxis on steroid
PPI daily for GI bleed prophylaxis on steroid
Consideration for PJP prophylaxis to be made in office with GI
Assessment / Plan
Assessment / Plan
Assessment
This is a 63 y/o male with pmhx of essential hypertension, hyperlipidemia, and ulcerative colitis who presented to the ED on 10/08/2024 with intractable rectal bleeding and loose stools for 2 months due to ulcerative colitis flare.
Plan
Ulcerative Colitis Flare
-Patient was diagnosed with ulcerative colitis in 1994. Previously he had responded well to Remicade, but his medication regimen was changed to Humira for insurance reasons
-Most recent colonoscopy in 2023 which patient recalled as normal
-CT scan in the ED revealed moderate infectious/inflammatory proctocolitis of the mid to distal sigmoid colon and rectum.
-Fecal studies negative
-Gastroenterology is following, will appreciate their insight into his case
-Pending biopsy results from sigmoidoscopy 10/09/2024
-Continue oral steroids with plan to watch patient for 24 hours minimum before discharge
-Upon discharge, patient needs prescriptions for calcium and Vitamin D supplements, as well as a PPI
-Patient has GI follow up already scheduled.
-Will trend CRP
Vitamin D Deficiency
-By patient report, chronic
-Encouraged outpatient follow up
Left Eye Non-Purulent Stye
-No current sign of other infectious process.
-Encouraged use of warm compress and oral pain medications as needed
-Will monitor
Chronic Microcytic Anemia
-2/2 to Ulcerative Colitis Flare
-Hemoglobin has remained stable
-Will trend CBC
Essential Hypertension
-Continue home meds (Lisinopril) with hold parameters
Hyperlipidemia
-Continue home meds (Crestor)
Anticipated Discharge: Today
Subjective/Interval History
-
Date of Service: October 11, 2024
Seen and examined at the bedside. No acute events reported overnight. AFVSS this morning
Patient states he feels well, minimal blood in his stool since being put on steroids. Denies abdomen pain, nausea or vomiting, fevers or chills
Denies any new complaints, feels ready for home
Objective Data
-
Labs:
Laboratory Results
10/11/24
07:05
WBC 9.3
Hgb 12.0 L
Hct 38.1 L
Plt Count 414 H
Sodium 138
Potassium 4.3
Chloride 104
Carbon Dioxide 27
BUN 24 H
Creatinine 1.1
Glucose 96
Calcium 9.8
Vital Signs:
Vital Signs
Temp Pulse Resp BP Pulse Ox
97.7 F 49 18 128/80 96
10/11/24 07:00 10/11/24 07:00 10/11/24 07:00 10/11/24 07:00 10/11/24 07:00
Review of Systems
-
History Source: Patient
All other systems: Reviewed and negative
Physical Exam
-
General: Well Developed, Well Nourished, No Apparent Distress and Comfortable
HEENT: Normocephalic, Atraumatic and Moist Mucous Membranes
Respiratory: Clear to Auscultation and Non Labored Respirations; Negative Accessory Resp Muscle Use
Cardiac: Regular Rhythm and S1/S2; Negative Murmur, Rub or Gallop
GI: Soft, Nontender, Nondistended and Normal Bowel Sounds
Musculoskeletal: No Clubbing, No Cyanosis and No Edema
Skin: Warm and Dry; Negative Rash
Neuro: AO x 3 and Nonfocal/Grossly Intact
Psych: Calm
Data Reviewed
-
Labs: Labs Reviewed by me, Discussed with Physician (Gastroenterology) and Discussed with Patient
--- NOTE | 2024-10-11 19:58 | W.DCSUMMARY ---
Discharge Summary
Discharge Data
Date of Admission: 10/08/24
Date of Discharge: 10/11/24
-
Pending Results: Yes (Sigmoidoscopy Biopsy Results)
Hospital Course
This is a 63 y/o male with pmhx of essential hypertension, hyperlipidemia, and ulcerative colitis who presented to the ED on 10/08/2024 with intractable rectal bleeding and loose stools for 2 months. He experienced 20-30 episodes of diarrhea per day
accompanied by intense abdominal cramping while moving bowels and a 15lb weight loss. He had been evaluated outpatient by gastroenterology in [place], was prescribed steroids which he took for 1 month, and has been taking mesalamine oral and enema
without any relief in his symptoms. He did not have any nausea, vomiting, fever, chills, dizziness, chest pain, shortness of breath, dysuria or hematuria.
In the ED, CT scan of his abdomen/pelvis revealed moderate infectious/inflammatory proctocolitis of the mid to distal sigmoid colon and rectum. He was started on IV steroids. Gastroenterology was consulted and he was admitted to the hospital.
On 10/09/2024 a sigmoidoscopy was performed which revealed hemorrhoids on perianal exam, inflammation in a continuous and circumferential pattern from the anus to the splenic flexure graded as a Bernal Score 3 (Severe, with spontaneous bleeding,
ulcerations). Biopsies were taken and he tolerated the procedure well. He experienced a decrease in his symptoms during his hospitalization including decreased frequency of bowel movements, and decreased amount of blood present in each stool. He was
transitioned from IV to oral steroids on 10/10/2024, and monitored for 24 hours. On 10/11/2024 he was found to be medically stable. He was discharged to home on 50mg of prednisone, calcium and vitamin D supplements for bone prophylaxis, daily PPI for
GI bleed prophylaxis. 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
Discharge Plan
-
Patient Disposition: Home (Routine Discharge)
Discharge Diagnosis/Procedures: Ulcerative colitis flare
Hematochezia
Condition: Good
Diet: Low Fiber
Activity: As tolerated
Driving Restrictions: As prior to admission
Bathing Restrictions: None
Activity Restrictions/Additional Instructions:
Follow-up in office with your family doctor within 1 to 2 weeks of being discharged. Referral provided if you need a new family doctor
Follow-up in office with gastroenterology. They will speak with you about possibly starting antibiotics as prophylaxis while you are on an extended course of the steroid.
Referrals:
[facility] [Outside]
NONE,* [Family Provider, Internal Medicine]
Ashley Gambino DO [Active, Gastroenterology]
Prescriptions:
New
prednisone 50 mg Tablet
50 mg PO DAILY 30 Days Qty: 30 0RF
calcium carbonate-vitamin D3 600 mg-20 mcg (800 unit) tablet
2 tab PO DAILY 30 Days Qty: 60 0RF
pantoprazole [Protonix] 40 mg tablet,delayed release (DR/EC)
40 mg PO DAILY 30 Days Qty: 30 0RF
Continued
lisinopril 20 mg Tablet
20 mg PO HS
rosuvastatin [Crestor] 10 mg Tablet
10 mg PO HS
Held
mesalamine 1.2 gram Tablet,Delayed Release (Dr/Ec)
4.8 g PO DAILY
Hold Instructions: Until seen by learning coordinator
Humira(CF) 40 mg/0.4 mL Syringe Kit
40 mg SC Q2W
Hold Instructions: Until seen by learning coordinator
Discontinued
cholecalciferol (vitamin D3) [Vitamin D3] 25 mcg (1,000 unit) Tablet
25 mcg PO DAILY
Discharge Orders:
Discharge Patient (As Directed); Ordered 10/11/24
Ordered By: Lonnie Becker
Discharge Date and Time
Discharge Date/Time: 10/11/24 11:31
Print Language: AFGHAN
[2024-10-14 21:33] LABS: Calprotectin, Fecal >3000 ug/g (<=49)
== END 2024-10-11 11:31 | disposition home or self-care (01) | DRG 387 ==
LOC: 4 WEST ACU 15:55
PROVIDERS: Nurse Practitioner Adult Health; Physician Assistant; Registered Nurse; ADMITTING PHYSICIAN Student in an Organized Health Care Education/Training Program; ATTENDING PHYSICIAN Internal Medicine; CONSULT PHYSICIAN Internal Medicine; EMERGENCY PHYSICIAN Emergency Medicine
PROC: 0DBN8ZX Excision of Sigmoid Colon, Via Natural or Artificial Opening Endoscopic, Diagnostic (ICD-10-PCS; 2024-10-08)
DX: K51.911 Ulcerative colitis, unspecified with rectal bleeding (principal); K64.9 Unspecified hemorrhoids; K57.30 Diverticulosis of large intestine without perforation or abscess without bleeding; E78.00 Pure hypercholesterolemia, unspecified; I10 Essential (primary) hypertension; E55.9 Vitamin D deficiency, unspecified; Z87.01 Personal history of pneumonia (recurrent); D56.9 Thalassemia, unspecified; E66.9 Obesity, unspecified; E86.9 Volume depletion, unspecified; Z80.0 Family history of malignant neoplasm of digestive organs; Z86.0100 Personal history of colon polyps, unspecified; Z87.442 Personal history of urinary calculi; Z68.34 Body mass index [BMI] 34.0-34.9, adult
CPT/HCPCS: 74177; 80048; 80053; 82728; 83540; 83550; 83993; 85025; 85027; 86140; 86480; 86704; 86803; 86850; 86900; 86901; 87045; 87046; 87324; 87328; 87329; 87340; 87427; 87449; 87798; 88305; 88342; 93005; Q9967

== ENCOUNTER → 2024-12-30 10:04 | Outpatient (REF) | payer OTHER, MEDICARE, SELFPAY | LOC: RAD 10:04 | PROVIDERS: ATTENDING PHYSICIAN Internal Medicine | DX: R06.02 Shortness of breath (principal) | CPT/HCPCS: 71046 ==

== ENCOUNTER → 2025-01-02 15:22 | Outpatient (REF) | payer MEDICARE, OTHER, SELFPAY | LOC: RAD 15:22 | PROVIDERS: ATTENDING PHYSICIAN Family Medicine | DX: R06.02 Shortness of breath (principal); Z87.01 Personal history of pneumonia (recurrent); Z87.09 Personal history of other diseases of the respiratory system; Z77.22 Contact with and (suspected) exposure to environmental tobacco smoke (acute) (chronic); R07.89 Other chest pain | CPT/HCPCS: 71270; 93005; Q9967 ==

== ENCOUNTER → 2025-02-27 09:23 | Outpatient (REF) | payer MEDICARE, OTHER, SELFPAY | LOC: WDC 09:23 | PROVIDERS: ATTENDING PHYSICIAN Family Medicine | DX: N63.21 Unspecified lump in the left breast, upper outer quadrant (principal) | CPT/HCPCS: 76642; 77062; 77066 ==